=== PATIENT | female | born 1950 | race Caucasian/White ===

== ENCOUNTER → 2017-05-04 | Outpatient (CLI) | payer OTHER ==
--- NOTE | 2017-05-06 07:32 | MM ---
Reason for exam: screening (asymptomatic). Last mammogram was performed 1 year and 7 months ago. History: Patient is postmenopausal. Benign stereotactic core biopsy of the left breast, May 27, 2001. Physical Findings: A clinical breast exam by your physician is recommended on an annual basis and results should be correlated with mammographic findings. MG 3D Screening Mammo W/Cad Bilateral CC and MLO view(s) were taken. Prior study comparison: October 16, 2015, bilateral MG screening mammo w CAD. March 13, 2014, bilateral MG screening mammo w CAD. February 22, 2013, bilateral digital screening mammo w/CAD. There are scattered fibroglandular densities. Previous mammotome biopsy in the left breast. There is chronic nodularity bilaterally. No significant changes when compared with prior studies. ASSESSMENT: Negative, BI-RAD 1 RECOMMENDATION: Routine screening mammogram of both breasts in 1 year.
== END | disposition home or self-care (01) ==
LOC: RADMAMWWP 14:27
PROVIDERS: ATTEND Obstetrics & Gynecology
DX: Z12.31 Encounter for screening mammogram for malignant neoplasm of breast (principal); Z78.0 Asymptomatic menopausal state
CPT/HCPCS: 77063; G0202

== ENCOUNTER → 2019-03-10 | Outpatient (CLI) | payer MEDICARE, OTHER ==
--- NOTE | 2019-03-10 16:47 | BD ---
EXAMINATION TYPE: Axial Bone Density DATE OF EXAM: 03/10/2019 COMPARISON: 02.22.2013 CLINICAL HISTORY: 68 YR OLD FEMALE...ICD-10 CODE: N91.1 POST FIDEL, M89.9 BONE DISORDER, M81.0 OSTEOPO ROSIS Height: 60.5 Weight: 178 FRAX RISK QUESTIONS: History of Fracture in Adulthood: YES Secondary Osteoporosis: YES 5. Chronic liver disease: FATTY LIVER, ENZYMES HIGH Current Tobacco Use: QUIT 2004 RISK FACTORS HISTORY OF: RT PATELLA FRACTURE AND RT ANKLE, IN HER 50s Postmenopausal woman: YES, AT AGE 52 MEDICATIONS: Prednisone or other steroids: STEROIDAL EYE DROPS ONLY Additional Medications: CALCIUM AND MULTIVITAMIN, BP MEDS, XANAX, ORAL DIABETIC MEDS, Additional History: DIABETIC, HYPERTENSION EXAM MEASUREMENTS: Bone mineral densitometry was performed using the [employer] System. Bone mineral density as measured about the Lumbar spine is: ----- L1-L4(G/cm2): 1.200 T Score Values are as follows: ----- L1: -0.9 ----- L2: 0.4 ----- L3: -0.4 ----- L4: 1.0 ----- L1-L4: 0.2 Bone mineral density has: Increased 0.6% since study of: 02.22.2013 Bone mineral density about the R hip (g/cm2): 0.836 Bone mineral density about the L hip (g/cm2): 0.908 T Score values are as follows: -----R Neck: -1.9 -----L Neck: -1.6 -----R Total: -1.4 -----L Total: -0.8 Bone mineral density has: Increased 3.1% since study of: 02.22.2013 FRAX%s: THERE IS A 16.4% CHANCE FOR A MAJOR OSTEOPOROTIC FX AND A 2.4% FOR HIP....PROBABILITY FOR F X IN 10 YRS TIME IMPRESSION: Osteopenia (T Score between -2.5 and -1). There is slightly increased risk of fracture and the patient may be considered for treatment. Re-Screen 2-5 years. NOTE: T-SCORE=SD OF THE YOUNG ADULT MEAN.
--- NOTE | 2019-03-11 11:37 | MM ---
Reason for exam: screening (asymptomatic). Last mammogram was performed 1 year and 10 months ago. History: Patient is postmenopausal. Benign stereotactic core biopsy of the left breast, May 27, 2001. Physical Findings: A clinical breast exam by your physician is recommended on an annual basis and results should be correlated with mammographic findings. MG 3D Screening Mammo W/Cad Bilateral CC and MLO view(s) were taken. Prior study comparison: May 04, 2017, bilateral MG 3d screening mammo w/cad. October 16, 2015, bilateral MG screening mammo w CAD. The breast tissue is heterogeneously dense. This may lower the sensitivity of mammography. Previous mammotome biopsy in the left breast. There is chronic nodularity in the right breast and in the left breast at clip, but new adjacent smaller nodules MLO () and CC (). ASSESSMENT: Incomplete: need additional imaging evaluation, BI-RAD 0 RECOMMENDATION: Ultrasound of the left breast. [facility] will attempt to contact patient to return for ultrasound.
== END | disposition home or self-care (01) ==
LOC: RADMAMWWP 14:17
PROVIDERS: ATTEND Obstetrics & Gynecology
DX: Z12.31 Encounter for screening mammogram for malignant neoplasm of breast (principal); M85.851 Other specified disorders of bone density and structure, right thigh; M85.852 Other specified disorders of bone density and structure, left thigh
CPT/HCPCS: 77063; 77067; 77080

== ENCOUNTER → 2019-03-21 | Outpatient (CLI) | payer MEDICARE, OTHER ==
--- NOTE | 2019-03-22 08:24 | USB ---
Reason for exam: additional evaluation requested from abnormal screening. History: Patient is postmenopausal. Benign stereotactic core biopsy of the left breast, May 27, 2001. Physical Findings: Nurse did not find any significant physical abnormalities on exam. US Breast Workup Limited LT Left limited breast ultrasound including focal area of concern, retroareolar and axilla demonstrates a 1.0 x 1.1 x 0.5cm solid, hypoechoic lesion at 1 o'clock, previously biopsied and a 0.7 x 0.5 x 0.3cm hypoechoic lesion at 1 o'clock, fatty hilum, corresponds with mammogram. Additional adjacent mammographic focal asymmetry. Stable back to 2013. These results were verbally communicated with the patient and result sheet given to the patient on 03/21/19. ASSESSMENT: Benign, BI-RAD 2 RECOMMENDATION: Return to routine screening mammogram schedule for both breasts.
== END | disposition home or self-care (01) ==
LOC: RADMAMWWP 14:00
PROVIDERS: ATTEND Obstetrics & Gynecology
DX: R92.8 Other abnormal and inconclusive findings on diagnostic imaging of breast (principal)

== ENCOUNTER → 2020-06-13 | Outpatient (CLI) | payer MEDICARE, OTHER ==
--- NOTE | 2020-06-15 10:33 | MM ---
Reason for exam: screening (asymptomatic). Last mammogram was performed 1 year and 3 months ago. History: Patient is postmenopausal. Benign stereotactic core biopsy of the left breast, May 27, 2001. Physical Findings: A clinical breast exam by your physician is recommended on an annual basis and results should be correlated with mammographic findings. MG 3D Screening Mammo W/Cad Bilateral CC, MLO, and XCCL view(s) were taken. Prior study comparison: March 10, 2019, bilateral MG 3d screening mammo w/cad. May 04, 2017, bilateral MG 3d screening mammo w/cad. The breast tissue is heterogeneously dense. This may lower the sensitivity of mammography. Previous mammotome biopsy in the left breast. There is chronic nodularity bilaterally. No significant changes when compared with prior studies. ASSESSMENT: Benign, BI-RAD 2 RECOMMENDATION: Routine screening mammogram of both breasts in 1 year.
== END | disposition home or self-care (01) ==
LOC: RADMAMWWP 13:33
PROVIDERS: ATTEND Obstetrics & Gynecology
DX: Z12.31 Encounter for screening mammogram for malignant neoplasm of breast (principal)
CPT/HCPCS: 77063; 77067

== ENCOUNTER 2020-09-18 09:09 | Day surgery (SDC) | payer MEDICARE, OTHER ==
[2020-09-14 15:25] VITALS: BMI 31.1
[~2020-09-18 09:09] MED LIST: ALPRAZolam 0.25 MG TAB PO PRN; ALPRAZolam 0.5 MG TAB PO PRN; ASPIRIN 325 MG TAB PO ONE; NITROGLYCERIN SL TABS 0.4 MG TAB SUBLINGUAL PRN; SODIUM CHLORIDE 0.9% 1,000 ML in EMPTY BAG 1 BAG IV ONE
[2020-09-18] MEDS ORDERED: SODIUM CHLORIDE 0.9% 1,000 ML IV ONE (09:43)
[2020-09-18 10:01] LABS: Glucose,Whole Blood 98 mg/dL (75-99)
[2020-09-18 10:04] VITALS: RESP 16; TEMP 98.4
[2020-09-18 10:47] LABS: Glucose,Whole Blood 94 mg/dL (75-99)
[2020-09-18] MEDS ORDERED: LIDOCAINE 1% INJ 10MG/ML (20 ML MDV) ONE (11:42)
[2020-09-18] MEDS ORDERED: MIDAZOLAM 2 MG/2 ML VIAL IV ONE (11:50)
[2020-09-18] MEDS ORDERED: LIDOCAINE 1% INJ 10MG/ML (20 ML MDV) SQ ONE (11:53)
[2020-09-18] MEDS ORDERED: BIVALIRUDIN BOLUS 250 MG/50 ML IV ONE (12:02)
[2020-09-18] MEDS ORDERED: BIVALIRUDIN 250 MG in SODIUM CHLORIDE 0.9% 50 ML IV ONE (12:02)
[2020-09-18] MEDS: NITROGLYCERIN 1000MCG/10ML SYRINGE INTRACORON ONE ×2 (12:12→12:32)
[2020-09-18] MEDS ORDERED: IOPAMIDOL-370 100ML BTL INJ ONE ×2 (12:19→12:38)
[2020-09-18] MEDS ORDERED: TICAGRELOR 90 MG TAB ONE (12:35)
[2020-09-18] MEDS ORDERED: TICAGRELOR 90 MG TAB PO ONE (12:38)
[2020-09-18] MEDS ORDERED: SODIUM CHLORIDE 0.9% 1,000 ML IV SCH (12:50)
[2020-09-18 12:57] LABS: Glucose,Whole Blood 61 mg/dL (75-99)
[2020-09-18 13:10] LABS: Glucose,Whole Blood 61 mg/dL (75-99)
[2020-09-18] MEDS ORDERED: RX INFO: IV CONTRAST WAS GIVEN 1 EACH MISC MISCELLANE PRN (13:26)
[2020-09-18 13:35] LABS: Glucose,Whole Blood 91 mg/dL (75-99)
--- NOTE | 2020-09-18 14:22 | PTCA ---
PERCUTANEOUSTRANS CORORONARY ANGIOGRAPHY DATE OF SERVICE: 09/18/2020. PROCEDURE: 1. PTCA and stenting of dominant mid RCA calcified lesion with a drug-eluting stent. 2. PTCA and stenting of a circumflex marginal with a drug-eluting stent. PERFORMED BY: Dr. Neha Torres. Moderate conscious sedation time was 50 minutes. CLINICAL INFORMATION: Mrs. Miranda Franks is a 70-year-old lady with a known history of CAD, hypertension, hyperlipidemia, who had an abnormal stress test and significant symptoms and underwent cardiac cath performed by me at the [facility] recently, which revealed 80% eccentric mid RCA lesion, she also had a significant lesion in the circumflex marginal of 90%. She additionally had a lesion in the major diagonal branch of about 70%-80%. LAD was free of significant disease as well left main. I recommend intervention of this and brought in for the procedure electively to be performed from the right femoral approach. PROCEDURE NOTE: Under local anesthesia and strict aseptic precautions, a 6-Mongolian introducer was placed in the right femoral artery. I used a standard right Shabbir guide catheter to cannulate the right coronary artery and a run-through wire was used to cross the lesion. Predilatation of the mid RCA lesion was performed with a 2.5 caliber 12 mm NC Trek balloon. I then deployed a 3.25 caliber 12 mm Xience stent at 12 atmospheres. Patient had mild chest discomfort. No significant EKG changes. Excellent angiographic result was achieved. I then turned my attention to the circumflex marginal. The same wire was used. A JL-4 guide catheter was used to cannulate the left coronary artery. This was somewhat difficult to wire and I had to manipulate the wire substance significantly and I was able to cross the lesion wire was kept distally. A 2.25 caliber 15 mm NC Trek balloon was used to pre-dilate the lesion and I then deployed an 18 mm long 2.25 caliber Xience stent at 13 atmospheres. Patient had mild chest discomfort. No significant EKG changes. Excellent angiographic result was achieved without complication. Patient received Angiomax bolus and infusion as per protocol. He received 180 mg of Brilinta orally. The sheath was taken out and Angio-Seal device used to secure hemostasis and she was sent to the room in stable condition. Results were discussed with the patient and . I expect that she will be discharged later on today and I will see her in the office on Thursday as scheduled. MMVALENTINA / MARCELINON: [id number] /
[2020-09-18] MEDS ORDERED: ATORVASTATIN 80 MG TAB PO STA (14:39)
[2020-09-18] MEDS ORDERED: ACETAMINOPHEN TAB 325 MG TAB ONE (17:43)
[2020-09-18 17:57] VITALS: BP 154/70; PULSE 70
== END 2020-09-18 18:25 | disposition home or self-care (01) ==
LOC: CATHCVL 09:09
PROVIDERS: ATTEND Internal Medicine Interventional Cardiology
DX: I25.10 Atherosclerotic heart disease of native coronary artery without angina pectoris (principal); I25.84 Coronary atherosclerosis due to calcified coronary lesion; R94.39 Abnormal result of other cardiovascular function study; I10 Essential (primary) hypertension; E11.9 Type 2 diabetes mellitus without complications; E78.2 Mixed hyperlipidemia; Z82.49 Family history of ischemic heart disease and other diseases of the circulatory system; G35 Multiple sclerosis; Z72.0 Tobacco use; Z79.01 Long term (current) use of anticoagulants; Z79.82 Long term (current) use of aspirin; Z79.899 Other long term (current) drug therapy
CPT/HCPCS: C9600 ×2; C1760; C1887 ×2; C1725 ×2; C1769 ×3; C1894; C1874; J2250; J2001; J0583; Q9967

== ENCOUNTER 2021-11-28 12:59 | Emergency (ER) | payer MEDICARE ==
[2021-11-28] MEDS ORDERED: HYDROmorphone 1 MG/ML 1 ML SYRINGE IVP STA ×2 (13:03→17:14)
[2021-11-28 13:18] VITALS: RESP 16; TEMP 98.1
[2021-11-28] MEDS ORDERED: ONDANSETRON 4 MG/2 ML VIAL IVP STA ×2 (14:03→17:14)
--- NOTE | 2021-11-28 14:04 | XR ---
EXAMINATION TYPE: XR knee limited RT DATE OF EXAM: 11/28/2021 COMPARISON: NONE HISTORY: Pain TECHNIQUE: Three views are submitted. FINDINGS: Comminuted intra-articular fracture of the tibial plateau extending diaphysis. Appears to be a displa adriano comminuted fracture of the proximal fibula. Suprapatellar bursal fluid collection noted and findi ngs are suspicious for linear fracture through the patella. IMPRESSION: 1. Comminuted displaced proximal tibia with likely extension to the lateral tibial plateau. 2. Comminuted fracture proximal fibula with placement.
--- NOTE | 2021-11-28 14:05 | XR ---
EXAMINATION TYPE: XR tibia fibula RT DATE OF EXAM: 11/28/2021 COMPARISON: NONE HISTORY: Pain TECHNIQUE: Two views are submitted. FINDINGS: Comminuted displaced fractures involving the proximal tibia and fibula. Diffuse osteopenia. Postsurgi harsh change involving the ankle and foot. Soft tissue calcification noted distally. Suprapatellar burs al fluid collection noted. Lucency along the upper margin of the patella suspicious for nondisplaced fracture. IMPRESSION: 1. Comminuted displaced fractures of the proximal tibia and fibula 2. Findings suspicious for hairline fracture involving the upper pole of the patella
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
--- NOTE | 2021-11-28 14:37 | CT ---
EXAMINATION TYPE: CT brain gordon philippe DATE OF EXAM: 11/28/2021 COMPARISON: None available HISTORY: Fall. CT DLP: 1267 mGycm Automated exposure control for dose reduction was used. TECHNIQUE: Multiplanar CT scan of the head and cervical spine are performed without contrast. FINDINGS: Brain: Bilateral cerebral periventricular and to a lesser extent subcortical white matter hypodensities, non specific and could be related to chronic microvascular ischemic changes however other white matter ab normalities likely demyelinating lesions cannot be excluded. Recommend clinical correlation and [facility] er MRI assessment if not previously performed. No acute intracranial hemorrhage. No gross acute cortical infarct. No midline shift or herniation. Un remarkable basal cisterns, sella and CP angles. No gross space-occupying lesion. No gross orbital abn ormality. Minimal opacification of the left mastoid air cells. No definite acute calvarial bone fract ure identified. Cervical spine: Preserved cervical curvature. No significant anterolisthesis or retrolisthesis. No definite vertebral body collapse or acute displaced fracture. Unremarkable atlantoaxial and atlantooccipital articulati ons. Degenerative changes are seen at C4-5 and C5-6 levels with opposing endplate osteophytosis, degenerat ed discs and uncovertebral osteoarthropathy. Severe central spinal canal stenosis is seen at C5-6 lev el and to a lesser extent at C3-4 and C4-5 levels. Moderate right C4-5, moderate right and severe lef t C5-6 neural foraminal stenosis. Slightly prominent palatine tonsils more on the right side, please correlate clinically. This is asso ciated with prominent bilateral cervical lymph nodes more on the right side measuring up to 11 mm in the right level 2 and 10 mm in the left level 2. No paraspinal lesion. IMPRESSION: 1. No acute intracranial posttraumatic sequela or acute calvarial bone fracture. 2. The described bilateral cerebral white matter hypodensities could be related to chronic microvascu lar ischemic changes however other white matter abnormality likely demyelinating disease cannot be ex cluded if not already known. Further neurological assessment and MRI assessment should be considered if not already performed. 3. No acute traumatic bony injury of the cervical spine. 4. Asymmetrically slightly larger right palatine tonsils with bilateral prominent cervical lymph node s more on the right side as described above. Recommend clinical correlation and further workup includ ing ENT consultation. Other incidental findings as described above.
[2021-11-28 16:43] LABS: Glucose,Whole Blood 198 mg/dL (75-99)
[2021-11-28 16:48] VITALS: BP 135/74; PULSE 81
== END 2021-11-28 17:34 | disposition other institution (70) ==
LOC: EC 12:59
DX: S82.141A Displaced bicondylar fracture of right tibia, initial encounter for closed fracture (principal); S82.831A Other fracture of upper and lower end of right fibula, initial encounter for closed fracture; I25.10 Atherosclerotic heart disease of native coronary artery without angina pectoris; E11.9 Type 2 diabetes mellitus without complications; I10 Essential (primary) hypertension; Z79.02 Long term (current) use of antithrombotics/antiplatelets; Z79.82 Long term (current) use of aspirin; Z79.84 Long term (current) use of oral hypoglycemic drugs; Z90.49 Acquired absence of other specified parts of digestive tract; Z87.891 Personal history of nicotine dependence; W00.0XXA Fall on same level due to ice and snow, initial encounter
CPT/HCPCS: 99285; 96374; 96375; 96376 ×2; 36415; 73590; 73560; 72125; 70450; J2405; J1170

== ENCOUNTER → 2023-11-30 | Outpatient (CLI) | payer MEDICARE ==
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
--- NOTE | 2023-12-01 22:15 | MM ---
Reason for Exam: Screening (asymptomatic). Last screening mammogram was performed 12 month(s) ago. Patient History: Menarche at age 15. First Full-Term at age 23. Postmenopausal. 05/27/2001, Benign Stereotactic Core Biopsy on the left side. Risk Values: Janis 5 year model risk: 1.8%. NCI Lifetime model risk: 5.1%. Prior Study Comparison: 06/13/2020 Bilateral Screening Mammogram, [facility]. 11/26/2021 Bilateral Screening Mammogram, [facility]. 11/27/2022 Bilateral MG 3D screening mammo w/cad, [facility]. Tissue Density: The breast tissue is heterogeneously dense. This may lower the sensitivity of mammography. Findings: Analyzed By CAD. Chronic bilateral nodularity with a microclip on the left from prior biopsy. There is no suspicious group of microcalcifications or new suspicious mass in either breast. Overall Assessment: Benign, BI-RAD 2 Management: Screening Mammogram of both breasts in 1 year. . Patient should continue monthly self-breast exams. A clinical breast exam by your physician is recommended on an annual basis. This exam should not preclude additional follow-up of suspicious palpable abnormalities. Note on Janis scores and lifetime risk: 1. A Janis score greater than 3% is considered moderate risk. If this is the case, consider specialist referral to assess eligibility for a risk reducing agent. 2. If overall lifetime risk for the development of breast cancer is 20% or higher, the patient may qualify for future screening with alternating mammogram and breast MRI. Electronically signed and approved by: Yoon Cordero M.D. Radiologist
== END | disposition home or self-care (01) ==
LOC: RADBDWWP 10:18
PROVIDERS: ATTEND Obstetrics & Gynecology
DX: Z12.31 Encounter for screening mammogram for malignant neoplasm of breast (principal); Z13.820 Encounter for screening for osteoporosis; M85.89 Other specified disorders of bone density and structure, multiple sites; Z78.0 Asymptomatic menopausal state
CPT/HCPCS: 77063; 77067; 77080

== ENCOUNTER → 2025-01-04 | Outpatient (CLI) | payer MEDICARE ==
--- NOTE | 2025-01-04 10:20 | MM ---
Reason for Exam: Screening (asymptomatic). Last mammogram was performed 1 year(s) and 1 month(s) ago. Patient History: Menarche at age 15. First Full-Term at age 23. Postmenopausal. 05/27/2001, Benign Stereotactic Core Biopsy on the left side. Risk Values: Janis 5 year model risk: 1.9%. NCI Lifetime model risk: 4.8%. Prior Study Comparison: 11/26/2021 Bilateral Screening Mammogram, [facility]. 11/27/2022 Bilateral MG 3D screening mammo w/cad, [facility]. 11/30/2023 Bilateral MG 3D screening mammo w/cad, [facility]. Tissue Density: The breasts are heterogeneously dense, which may obscure small masses. Findings: Analyzed By CAD. There is no suspicious group of microcalcifications or new suspicious mass in either breast. A biopsy marker in the left breast. Stable appearing chronic nodularity bilateral breast. Benign-appearing calcified. Overall Assessment: Benign, BI-RAD 2 Management: Screening Mammogram of both breasts in 1 year. . Patient should continue monthly self-breast exams. A clinical breast exam by your physician is recommended on an annual basis. This exam should not preclude additional follow-up of suspicious palpable abnormalities. Note on Janis scores and lifetime risk: 1. A Janis score greater than 3% is considered moderate risk. If this is the case, consider specialist referral to assess eligibility for a risk reducing agent. 2. If overall lifetime risk for the development of breast cancer is 20% or higher, the patient may qualify for future screening with alternating mammogram and breast MRI. [facility], , 01/04/2025 10:17 AM. Electronically signed and approved by: Darien Do M.D. Radiologis
== END | disposition home or self-care (01) ==
LOC: RADMAMWWP 09:15
PROVIDERS: ATTEND Family Medicine
DX: Z12.31 Encounter for screening mammogram for malignant neoplasm of breast (principal); R92.333 Mammographic heterogeneous density, bilateral breasts; Z78.0 Asymptomatic menopausal state
CPT/HCPCS: 77063; 77067